=== PATIENT | male | born 1935 | race Caucasian/White ===

== ENCOUNTER 2017-11-25 15:16 | Emergency (ER) | payer MEDICARE ==
[~2017-11-25] VITALS: Ht 170.2 cm; Wt 93.9 kg
[~2017-11-25 15:16] MED LIST: ADALAT CC60 MG PO; MEDROLDOSEPACK PO; NORCO 5-325 TA1 EACH PO; PAXIL10 MG; PRINIVIL20 MG PO; TIZANIDINE HCL4 MG PO
[2017-11-25] MEDS ORDERED: OMEPRAZOLE 20 M20 MG PO (15:24)
[2017-11-25] MEDS ORDERED: AMBIEN 5 MG TABL5 M1 PO (15:24)
[2017-11-25] MEDS ORDERED: PREDNISOLONE 13.5 M1 INTRAOCULR (15:26)
[2017-11-25] MEDS ORDERED: TIMOLOL MA0.25 %/52 INTRAOCULR (15:27)
[2017-11-25] MEDS ORDERED: BUTALB-APAP-CA1 EACH PO (17:44)
[2017-11-25 17:52] VITALS: BP 145/84
== END 2017-11-25 17:52 | disposition home or self-care (01) ==
LOC: M.ERS 15:16
DX: S00.93XA Contusion of unspecified part of head, initial encounter (principal); M25.552 Pain in left hip; M25.512 Pain in left shoulder; I10 Essential (primary) hypertension; Z88.8 Allergy status to other drugs, medicaments and biological substances; W01.10XA Fall on same level from slipping, tripping and stumbling with subsequent striking against unspecified object, initial encounter; Y93.89 Activity, other specified; Y92.098 Other place in other non-institutional residence as the place of occurrence of the external cause; Y99.8 Other external cause status

== ENCOUNTER 2017-11-28 12:31 | Emergency (ER) | payer MEDICARE ==
[~2017-11-28] VITALS: Ht 170.2 cm; Wt 93.9 kg
[~2017-11-28 12:31] MED LIST changes: +AMBIEN 5 MG TABL5 M1 PO; +BUTALB-APAP-CA1 EACH PO; +OMEPRAZOLE 20 M20 MG PO; +PREDNISOLONE 13.5 M1 INTRAOCULR; +TIMOLOL MA0.25 %/52 INTRAOCULR
[2017-11-28 13:15] LABS: ABSOLUTE EOSINOPHILS 0.2 thou/uL (0.0-0.7); ABSOLUTE LYMPHOCYTES 0.9 thou/uL (0.8-5.3); ABSOLUTE MONOCYTES 0.6 thou/uL (0.0-1.2); ABSOLUTE NEUTROPHILS 2.7 thou/uL (1.6-8.1); BASOPHILS 0.8 %; EOSINOPHILS 4.2 %; HEMATOCRIT 42.7 % (42.0-52.0); HEMOGLOBIN 14.8 gm/dL (14.0-18.0); LYMPHOCYTES 21.5 %; MCH 31.5 pg (26.0-34.0); MCHC 34.5 g/dL (28.0-37.0); MCV 91.3 fL (80.0-100.0); MONOCYTES 12.6 %; MPV 8.2 fl. (7.2-11.1); NUCLEATED RBCS 0 /100WBC; PLATELET COUNT* 162 thou/uL (150-400); POLYS 60.9 %; RBC 4.68 mil/uL (4.50-6.00); RDW-CV 13.4 % (10.5-14.5); WBC 4.4 thou/uL (4.0-11.0)
[2017-11-28 13:30] LABS: INR 1.1; PROTIME 10.4 Seconds (9.20-11.50)
[2017-11-28 13:31] LABS: ANION GAP 8 mmol/L (7-16); BUN 18 mg/dL (7-18); CALCIUM 8.6 mg/dL (8.5-10.1); CHLORIDE 106 mmol/L (98-107); CO2 26 mmol/L (21-32); GLUCOSE 99 mg/dL (70-99); POTASSIUM 3.9 mmol/L (3.5-5.1); SODIUM 140 mmol/L (136-145)
[2017-11-28 13:51] LABS: ALBUMIN 3.4 g/dL (3.4-5.0); ALKALINE PHOSPHATASE 109 U/L (46-116); CK-MB MASS 0.5 ng/mL (<0.5-3.6); LIPASE 151 U/L (73-393); MAGNESIUM 1.9 mg/dL (1.8-2.4); NT-PRO BRAIN NAT PEPTIDE 122 pg/mL (<300); SGOT 28 U/L (15-37); SGPT 34 U/L (30-65); TOTAL BILIRUBIN 0.6 mg/dL (<0.1-1.0); TOTAL PROTEIN 6.8 g/dL (6.4-8.2); TROPONIN-I LEVEL <0.06 ng/mL (<0.06)
[2017-11-28 15:39] VITALS: BP 134/100
--- NOTE | 2017-11-28 18:13 | EKG ---
[place] [address] ELECTROCARDIOGRAM REPORT Name: TISH ARMENDARIZ Room: [facility]#: [id number] Admission: 11/28/17 Attend Phys: Discharge: 11/28/17 Date of : 37 Report #: [id number] THIS REPORT FOR: //name// [facility] ED Test Date: 2017-11-28 Test Time: 12:37:00 Pat Name: TISH ARMENDARIZ Department: Room: Gender: M [employer] [facility] Counselor: Luzmaria FRY : 1935 Requested By: Kirby Ham Order Number: [id number] MD: Michael Romano Measurements Intervals [place] Rate: 57 P: -57 [place]: 206 QRS: -23 QRSD: 96 T: 35 QT: 424 QTc: 413 Interpretive Statements Sinus or ectopic atrial rhythm Borderline left axis deviation Abnormal R-wave progression, early transition No previous ECG available for comparison Electronically Signed On 11-28-2017 18:13:01 CDT by Michael Romano [email or web address] <ELECTRONICALLY SIGNED> By: Michael Romano MD, [facility] 11/28/17 1813 1237 1237 Michael Romano MD, FACC /EPI
== END 2017-11-28 15:40 | disposition home or self-care (01) ==
LOC: M.ERS 12:31
PROVIDERS: Emergency Medicine
DX: R00.2 Palpitations (principal); I10 Essential (primary) hypertension

== ENCOUNTER 2019-06-21 05:53 | Observation (INO) | payer MEDICARE ==
[~2019-06-21] VITALS: Ht 170.2 cm; Wt 94.3 kg
[~2019-06-21 05:53] MED LIST changes: +OMEPRAZOLE 20 M20 M1 PO; -OMEPRAZOLE 20 M20 MG PO
[2019-06-21 05:57] VITALS: BP 166/81
[2019-06-21] MEDS ORDERED: TYLENOL PM EX-1 EACH PO (06:06)
[2019-06-21 06:17] LABS: ABSOLUTE EOSINOPHILS 0.1 thou/uL (0.0-0.7); ABSOLUTE LYMPHOCYTES 1.5 thou/uL (0.8-5.3); ABSOLUTE MONOCYTES 0.8 thou/uL (0.0-1.2); ABSOLUTE NEUTROPHILS 5.8 thou/uL (1.6-8.1); BASOPHILS 0.5 %; EOSINOPHILS 1.2 %; HEMATOCRIT 41.5 % (42.0-52.0); HEMOGLOBIN 14.3 gm/dL (14.0-18.0); LYMPHOCYTES 18.4 %; MCHC 34.4 g/dL (28.0-37.0); MCV 90.1 fL (80.0-100.0); MONOCYTES 9.8 %; MPV 8.1 fl. (7.2-11.1); NUCLEATED RBCS 0 /100WBC; PLATELET COUNT* 218 thou/uL (150-400); POLYS 70.1 %; RBC 4.61 mil/uL (4.50-6.00); RDW-CV 13.3 % (10.5-14.5); WBC 8.2 thou/uL (4.0-11.0)
[2019-06-21 06:21] LABS: ANION GAP 11 mmol/L (7-16); BUN 14 mg/dL (7-18); CALCIUM 8.9 mg/dL (8.5-10.1); CHLORIDE 103 mmol/L (98-107); CO2 24 mmol/L (21-32); CREATININE 1.2 mg/dL (0.6-1.3); GLUCOSE 108 mg/dL (70-99); POTASSIUM 3.8 mmol/L (3.5-5.1); SODIUM 138 mmol/L (136-145)
[2019-06-21 06:31] LABS: APTT 27.5 Seconds (25.0-31.3); PROTIME 10.7 Seconds (9.20-11.50)
[2019-06-21 06:33] LABS: ALBUMIN 3.5 g/dL (3.4-5.0); ALKALINE PHOSPHATASE 115 U/L (46-116); CK-MB MASS < 0.5 ng/mL (<0.5-3.6); LIPASE 106 U/L (73-393); MAGNESIUM 1.8 mg/dL (1.8-2.4); NT-PRO BRAIN NAT PEPTIDE 235 pg/mL (<300); SGOT 11 U/L (15-37); SGPT 19 U/L (30-65); TOTAL BILIRUBIN 1.4 mg/dL (<0.1-1.0); TOTAL PROTEIN 7.1 g/dL (6.4-8.2); TROPONIN-I LEVEL <0.06 ng/mL (<0.06)
[2019-06-21 07:50] VITALS: BP 131/66
[2019-06-21 08:00] VITALS: BP 132/64
[2019-06-21] MEDS ORDERED: LEVAQUIN 500 M500 M2 PO (11:15)
[2019-06-21 11:20] VITALS: BP 132/64
[2019-06-21 12:11] VITALS: BP 95/65
--- NOTE | 2019-06-21 14:48 | 2DMMODE ---
[place] [address] 2 D/M-MODE ECHOCARDIOGRAM Name: TISH ARMENDARIZ Room: [address] [place] M.R.#: [id number] Admission: 06/21/19 Attend Phys: Murray Mobley, Discharge: Date of : 37 Date of Service: 06/21/19 1448 Report #: [id number] THIS REPORT FOR: //name// APPROVED REPORT Study performed: 06/21/2019 12:08:24 EXAM: Comprehensive 2D, Doppler, and color-flow Echocardiogram BSA: 2.06 Left Ventricle The left ventricle is normal size. There is normal LV segmental wall motion. There is normal left ventricular wall thickness. The left ventricular systolic function is normal. The left ventricular ejection fraction is within the normal range. LVEF is 60-65%. The left ventricular diastolic function is normal. Right Ventricle The right ventricle is normal size. Atria The left atrium size is normal. Aortic Valve Mild aortic valve sclerosis. Trace aortic regurgitation. There is no aortic valvular stenosis. Mitral Valve The mitral valve is normal in structure. Tricuspid Valve The tricuspid valve is normal in structure. Great Vessels IVC is normal in size and collapses >50% with inspiration. Pericardium There is no pericardial effusion. <Conclusion> The left ventricle is normal size. There is normal [place] [address] 2 D/M-MODE ECHOCARDIOGRAM Name: TISH ARMENDARIZ Room: [address] M.R.#: [id number] Admission: 06/21/19 Attend Phys: Murray Mobley, Discharge: Date of : 37 Date of Service: 06/21/19 1448 Report #: [id number] The left ventricular systolic function is normal. The left ventricular ejection fraction is within the normal range. LVEF is 60-65%. The left ventricular diastolic function is normal. The right ventricle is normal size. The left atrium size is normal. Mild aortic valve sclerosis. Trace aortic regurgitation. There is no aortic valvular stenosis. The mitral valve is normal in structure. The tricuspid valve is normal in structure. IVC is normal in size and collapses >50% with inspiration. There is no pericardial effusion. There is normal LV segmental wall motion. <ELECTRONICALLY SIGNED> By: Cam Rey MD, FACC 06/21/19 1448 47 Cam Rey MD, FACC /INF
--- NOTE | 2019-06-21 15:17 | NUR ---
PT ARRIVED FROM ER AROUND 0800. ASSESSMENT COMPLETED CHARTED. ABLE TO MAKE NEEDS KNOWN. UP AD YARIEL IN ROOM. CARDIOLOGY SAW THIS PT AND DID RESTING PART OF STRESS TEST, THEN DOING NEXT PART TOMORROW OUT PATIENT. BOTH DOCTORS HAVE GIVEN D/C APPROVAL. C/O SLIGHT PAIN WITH INSPIRATION. CT SHOWED PNEUMONIA AND SENT HOME WITH ANTIBIOTIC. PT LEFT WITH VOLUTEER AND AT THIS TIME AMBULATORY. DISCHARGE PAPERWORK AND STRESS TEST INFO GIVEN TO PT. NO COMMENTS, QUESTIONS OR CONCERNS.
--- NOTE | 2019-06-21 16:24 | EKG ---
[place] [address] ELECTROCARDIOGRAM REPORT Name: TISH ARMENDARIZ Room: [address] M.R.#: [id number] Admission: 06/21/19 Attend Phys: Murray Mobley MD Discharge: 06/21/19 Date of : 37 Report #: [id number] THIS REPORT FOR: //name// [facility] ED Test Date: 2019-06-21 Test Time: 05:57:42 Pat Name: TISH ARMENDARIZ Department: Room: 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1935 Requested By: Pedro Adam Order Number: [id number] MD: Cam Rey Measurements Intervals [place] Rate: 69 P: -54 [place]: 198 QRS: -25 QRSD: 89 T: 52 QT: 391 QTc: 419 Interpretive Statements Sinus rhythm Borderline left axis deviation Baseline wander in lead(s) V1,V2 Compared to ECG 11/28/2017 12:37:00 No significant changes Electronically Signed On 06-21-2019 16:23:58 CDT by Cam Rey [email or web address] <ELECTRONICALLY SIGNED> By: Cam Rey MD, [facility] 06/21/19 1623 0557 0557 Cam Rey MD, [facility] /EPI
--- NOTE | 2019-06-22 16:31 | CARDNUC ---
[place] [address] CARDIAC NUCLEAR IMAGING REPORT Name: ELIOBIBIANATISH WHITEHEAD Room: [address]#: [id number] Admission: 06/21/19 Attend Phys: Murray Mobley, Discharge: 06/21/19 Date of : 37 Date of Service: 06/22/19 1630 Report #: [id number] THIS REPORT FOR: //name// APPROVED REPORT Imaging Protocol: Rest Tc-99m/Stress Tc-99m 2 days Study performed: 06/21/2019 08:47:00 Indication: Chest pain, Dyspnea, new onset AFib, increased weakness. Patient Location: Out-Patient Stress Tech: Khanh Alexandra Stress Nurse: Niesha Chaidez RN NM Tech:HO Neil Ht: 5 ft 7 in Wt: 209 lbs BSA: 2.06 m2 BMI: 32.73 Medical History Medical History: Angina, Atrial Fibrillation, Fatigue, Former Smoker, HTN, Obesity , SOB, Weakness. Medications: Lisinopril, Nifedipine. Allergies: Pseudophedrine (Sudafed) Cardiac Risk Factors: Age, FHX of CAD, HTN, SOB, Past Smoker. Previous Cardiac Procedures: None Pretest Chest Pain Characteristics: No chest pain Exercise History: Indeterminate Physical Disabilities: Obesity, Knee pain, AFib. Meds Held (24 hrs): None Resting Data Rest SPECT myocardial perfusion imaging was performed in supine position 30 minutes following the intravenous injection of 31.2 mCi of Tc-99m Sestamibi. Time of rest injection: 1335 Date: 06/22/2019 The images were gated to evaluate regional wall motion and calculate left ventricular ejection fraction. Administration Route: IV Administration Site: Right AC Pharmacologic Stress Pharmacologic stress test was performed by injecting Regadenoson 0.4 mg IV push over 10-15 seconds immediately followed by the intravenous injection of 35.6 mCi of Tc-99m [place] [address] CARDIAC NUCLEAR IMAGING REPORT Name: KALATISH Room: [address]#: [id number] Admission: 06/21/19 Attend Phys: Murray Mobley, Discharge: 06/21/19 Date of : 37 Date of Service: 06/22/19 1630 Report #: [id number] Time of stress injection: 1155 Date: 06/22/2019 Administration Route: IV Administration Site: Right AC Gated Stress SPECT was performed 40 minutes after stress injection. The images were gated to evaluate regional wall motion and calculate left ventricular ejection fraction. Prone imaging was performed. Stress Test Details Stress Test: Pharmacologic stress testing performed using 0.4 mg of regadenoson per 5 mL given IV over 10 seconds. Reason for pharmacologic stress test: AFib, Obesity, Knee pain.. HR Max Heart Rate (APMHR): 138 bpm Resting HR: 88 bpm Target HR (85% APMHR): 117 bpm Max HR Achieved: 120 bpm % of APMHR: 86 Recovery HR: 105 bpm BP Resting BP: 137/86 mmHg Max BP: 146/84 mmHg Recovery BP: 147/84 mmHg ECG Resting ECG: Atrial Fibrillation Stress ECG: Atrial Fibrillation ST Change: None Arrhythmia: None Recovery ECG: Atrial Fibrillation Recovery ST Change: None Recovery Arrhythmia: None Clinical Reason for Termination: Completed protocol Stress Symptoms: None reported. Exercise duration: 00 min 00 sec Exercise capacity: 1.00 METs The patient had no significant cardiac symptoms with Lexiscan infusion. Nurse Comments A 83 year old male discharged from hospital 06/21/19, admitted for CP, dyspnea and increased weakness presented for sitting Lexiscan Nuclear Stress Test. Patient exhibited new [place]ib [place] [address] CARDIAC NUCLEAR IMAGING REPORT Name: TISH ARMENDARIZ Room: [address]#: [id number] Admission: 06/21/19 Attend Phys: Murray Mobley, Discharge: 06/21/19 Date of : 37 Date of Service: 06/22/19 1630 Report #: [id number] Patient tolerated sitting Lexiscan well. Recovery unremarkable with PO caffeine, effective. Patient was escorted by staff to Nuclear Medicine for images. Patient was stable with no complaints at that time. Stress ECG Conclusion The baseline 12-lead EKG shows atrial fibrillation with a controlled ventricular response rate. EKGs obtained during and post Lexiscan infusion showed continued atrial for ablation without significant ST or T wave abnormalities when compared to baseline. Study Quality Study: Good Artifact: No artifact Study Data At rest, the left ventricular ejection fraction was 70%.. Post stress, the left ventricular ejection was 70%.. TID = 0.69. Perfusion Normal left ventricular perfusion. Wall Motion Normal left ventricular wall motion. Nuclear Conclusion ECG Findings: negative for ischemia Clinical Findings: negative for ischemia Nuclear Findings: negative for ischemia Exercise Capacity: not assessed Left Ventricular Function: normal Risk Study: low Myocardial perfusion images show no defect to suggest infarct or ischemia. Left ventricular systolic function shows normal LV systolic function on gated studies. This is a low risk study. <Conclusion> The baseline 12-lead EKG shows atrial fibrillation with a controlled ventricular response rate. EKGs obtained during and post Lexiscan infusion showed continued atrial for ablation without significant ST or T wave abnormalities when compared to baseline. <ELECTRONICALLY SIGNED> By: Michael Romano MD, FACC 06/22/19 1630 163 163 Michael Romano MD, FACC /INF
== END 2019-06-21 15:27 | disposition home or self-care (01) ==
LOC: M.ERS 05:53 → M.2W 06:53 → M.TBA-ER 06:53 → M.2W 08:16
PROVIDERS: Family Medicine; ADMIT Internal Medicine
DX: R07.81 Pleurodynia (principal); J18.9 Pneumonia, unspecified organism; I10 Essential (primary) hypertension; Z88.8 Allergy status to other drugs, medicaments and biological substances; Z79.899 Other long term (current) drug therapy

== ENCOUNTER 2021-05-29 08:04 | Emergency (ER) | payer MEDICARE ==
[~2021-05-29] VITALS: Ht 170.2 cm; Wt 97.5 kg
[~2021-05-29 08:04] MED LIST changes: +LEVAQUIN 500 M500 M2 PO; +TYLENOL PM EX-1 EACH PO
[2021-05-29 11:06] LABS: ABSOLUTE EOSINOPHILS 0.1 thou/uL (0.0-0.7); ABSOLUTE LYMPHOCYTES 0.9 thou/uL (0.8-5.3); ABSOLUTE MONOCYTES 0.4 thou/uL (0.0-1.2); ABSOLUTE NEUTROPHILS 3.7 thou/uL (1.6-8.1); BASOPHILS 0.9 %; EOSINOPHILS 2.3 %; HEMATOCRIT 42.7 % (42.0-52.0); HEMOGLOBIN 14.6 gm/dL (14.0-18.0); LYMPHOCYTES 18.2 %; MCHC 34.1 g/dL (28.0-37.0); MCV 90.8 fL (80.0-100.0); MONOCYTES 8.1 %; MPV 8.2 fl. (7.2-11.1); NUCLEATED RBCS 0 /100WBC; PLATELET COUNT* 223 thou/uL (150-400); POLYS 70.5 %; RDW-CV 13.9 % (10.5-14.5); WBC 5.2 thou/uL (4.0-11.0)
[2021-05-29 11:11] LABS: POTASSIUM 4.2 mmol/L (3.5-5.1)
[2021-05-29 11:15] LABS: ALBUMIN 4.1 g/dL (3.4-5.0); TOTAL BILIRUBIN 1.1 mg/dL (<0.1-1.0)
--- NOTE | 2021-05-29 11:39 | EKG ---
[place] [address] ELECTROCARDIOGRAM REPORT Name: KALATISH WHITEHEAD Room: [facility]#: [id number] Admission: 05/29/21 Attend Phys: Discharge: Date of : 37 Date of Service: 05/29/21 1056 Report #: [id number] THIS REPORT FOR: //name// 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: [facility] : 1935 Requested By: Pedro Adam Order Number: [id number] MD: Andrez Brothesr Measurements Intervals [place] Rate: 59 P: -23 [place]: 212 QRS: -30 QRSD: 96 T: 37 QT: 443 QTc: 439 Interpretive Statements Sinus rhythm Left axis deviation Abnormal R-wave progression, early transition Compared to ECG 06/21/2019 05:57:42 No significant changes Electronically Signed On 05-29-2021 11:39:43 CDT by Andrez Brothers [email or web address] <ELECTRONICALLY SIGNED> By: Andrez Brothers MD, [facility] 05/29/21 1139 1056 1056 Andrez Brothers MD, [facility] /EPI
[2021-05-29 12:14] LABS: URINE BILIRUBIN NEGATIVE (Negative); URINE BLOOD NEGATIVE (Negative); URINE CLARITY CLEAR; URINE COLOR YELLOW; URINE GLUCOSE-RANDOM NEGATIVE (Negative); URINE KETONES NEGATIVE (Negative); URINE LEUKOCYTES-REFLEX NEGATIVE (Negative); URINE NITRITE-REFLEX NEGATIVE (Negative); URINE PROTEIN NEGATIVE (Negative); URINE UROBILINOGEN 0.2 E.U./dl (0.2-1.0)
[2021-05-29 13:04] VITALS: BP 158/82
== END 2021-05-29 13:05 | disposition home or self-care (01) ==
LOC: M.ERS 08:04
PROVIDERS: Family Medicine
DX: R10.32 Left lower quadrant pain (principal); I10 Essential (primary) hypertension; Z88.8 Allergy status to other drugs, medicaments and biological substances